=== PATIENT | male | born 1960 | race Asian ===

== ENCOUNTER 2024-05-01 06:26 | Day surgery (SDC) | payer OTHER ==
[~2024-05-01] VITALS: Ht 167.6 cm; Wt 59.9 kg
[2024-05-01] MEDS ORDERED: fentaNYL citrate 0.05 MG/ML VIAL ONE (07:29)
[2024-05-01] MEDS: fentaNYL citrate 0.05 MG/ML VIAL IVP ONE (07:44)
[2024-05-01] MEDS: LIDOCAINE 2% 100 MG/5 ML UJET TP ONE (07:50)
== END 2024-05-01 08:40 | disposition home or self-care (01) ==
LOC: MDS 06:26 → MMU 06:27 → MDS 08:40
PROVIDERS: ATTEND Internal Medicine Gastroenterology
DX: Z12.11 Encounter for screening for malignant neoplasm of colon (principal); K63.5 Polyp of colon; I25.10 Atherosclerotic heart disease of native coronary artery without angina pectoris; I10 Essential (primary) hypertension; E78.5 Hyperlipidemia, unspecified; I25.2 Old myocardial infarction; Z87.891 Personal history of nicotine dependence; Z88.1 Allergy status to other antibiotic agents; Z79.899 Other long term (current) drug therapy; Z98.890 Other specified postprocedural states
CPT/HCPCS: 45380; 82948; J3010